=== PATIENT | male | born 1980 | race Hispanic/Latino ===

== ENCOUNTER 2018-12-29 15:34 | Observation (INO) | payer OTHER, SELFPAY ==
[~2018-12-29 15:34] MED LIST: Dexamethasone 20 MG/5 ML VIAL ONE; Ketorolac Tromethamine 30 MG/ML VIAL ONE; Lidocaine 1% PF 5 ML VIAL ONE; Metoclopramide HCl 10 MG/2 ML VIAL ONE; Ondansetron PF 4 MG/2 ML Vial ONE; PROPOFOL 200 MG/20 ML VIAL ONE
[2018-12-29 17:13] LABS: #Eosinphils 0.2 thou/uL (0.0-0.7); #Lymphocytes 2.1 thou/uL (1.20-3.40); #Monocytes 0.5 thou/uL (0.11-0.59); #Neutrophils 4.4 thou/uL (1.40-6.50); %Basophils 0.5 % (0.0-1.0); %Eosinophils 2.2 % (0.0-10.0); %Lymphocytes 29.3 % (21.0-51.0); %Monocytes 6.4 % (0.0-10.0); %Neutrophils 61.6 % (42.0-75.0); Hemoglobin 17.8 g/dL (14.0-18.0); Mean Corpuscular HGB CONC 34.8 g/dL (32.0-36.0); Mean Corpuscular Hemoglobin 33.4 pg (27.0-31.0); Mean Corpuscular Volume 95.8 fL (78.0-98.0); Mean Platelet Volume 7.1 fL (7.4-10.4); Platelet Count 209 thou/uL (130-400); RBC Distribution Width 11.7 % (11.5-14.5); Red Blood Cell (RBC) Count 5.33 mill/uL (4.70-6.10); White Blood Cell (WBC) Count 7.2 thou/uL (4.8-10.8)
[2018-12-29] MEDS ORDERED: Bupivacaine PF 0.5% 30 ML VIAL ONE (18:34)
[2018-12-29] MEDS ORDERED: Sodium Chloride 0.9% 10 ML ONE ×2 (18:34→18:48)
[2018-12-29] MEDS ORDERED: Bacitracin Zinc Ointment 30 gm TUBE ONE (18:34)
[2018-12-29] MEDS ORDERED: Famotidine/PF 20 mg/2ml Vial ONE (18:40)
[2018-12-29] MEDS ORDERED: Fentanyl 100 MCG/2 ML VIAL ONE (18:40)
[2018-12-29] MEDS ORDERED: Promethazine HCl 25 MG/ML VIAL SLOW IVP PRN (20:26)
[2018-12-29] MEDS ORDERED: Ondansetron HCl/PF 4 MG/2 ML Vial IVP PRN (20:26)
[2018-12-29] MEDS ORDERED: Promethazine HCl 25 MG/ML VIAL IM PRN ×2 (20:26→20:57)
[2018-12-29] MEDS ORDERED: Meperidine HCl/PF 25 MG/ML VIAL SLOW IVP PRN (20:26)
[2018-12-29] MEDS ORDERED: HYDROcodone/Acetaminophen 5/325 mg Tablet ONE (20:41)
[2018-12-29] MEDS ORDERED: traMADol HCl 50 MG TAB PO PRN (20:57)
[2018-12-29] MEDS ORDERED: Acetaminophen 325 MG TAB PO PRN (20:57)
[2018-12-29] MEDS ORDERED: Morphine 2 MG/ML SYRINGE SLOW IVP PRN (20:57)
[2018-12-29] MEDS ORDERED: Ondansetron PF 4 MG/2 ML Vial IV PRN (20:57)
[2018-12-29] MEDS ORDERED: Milk Of Magnesia 30 ML UDCUP PO PRN (20:57)
[2018-12-29] MEDS ORDERED: Bisacodyl 10 MG SUPP PR PRN (20:57)
[2018-12-29] MEDS ORDERED: HYDROcodone/Acetaminophen 5/325 mg Tablet PO PRN (20:57)
[2018-12-29] MEDS ORDERED: TETANUS AND DIPHTHERIA TOX/PF 0.5 ML DISP.SYRIN IM SCH (21:00)
[2018-12-29] MEDS ORDERED: Meperidine HCl/PF 25 MG/ML VIAL IM PRN (21:00)
[2018-12-29] MEDS ORDERED: Communication Order-Pharmacy FS PRN (21:00)
--- NOTE | 2018-12-29 21:51 | OP ---
DATE OF PROCEDURE: 12/29/2018 PREOPERATIVE DIAGNOSIS: Left thumb wound with tendon laceration. FINDINGS: Left thumb wound with 1. Intact flexor pollicis longus. 2. Intact ulnar and radial digital nerves. 3. Laceration, complete, of the abductor pollicis brevis, thenar muscle. 4. No joint involvement. 5. Flexor pollicis longus intact. 6. Minimal contamination, 5 cm wound. PROCEDURES PERFORMED: 1. Debridement of wound, 5 cm depth down to and including the tendon sheath, but not involving bone or joint. 2. Wound closure, 5 cm. 3. Abductor pollicis brevis laceration repair. 4. Neuroplasty of both digital nerves, radial and ulnar under loupe magnification. 5. 100% laceration of the tendon . Intact FPL and both digital nerves including radial digital nerve. ESTIMATED BLOOD LOSS: 10 mL. TOURNIQUET TIME: 25 minutes. SPECIMEN: None. DESCRIPTION OF PROCEDURE: After successful general endotracheal anesthesia, the patient had the limb prepped and draped. He then had painful resisted flexion, but had a flexion posture in the clinic for the FPL being intact and once prepped. The wound was primarily volar radial and extended to the midline at the level of the distal to the A1 bianca. We inflated the tourniquet after exsanguination of the limb, and injected the area with 10 mL of 0.5% Marcaine prior to surgery and 10 after the wound was closed. We extended the incision 2 cm proximal obliquely and then we dissected down and found both digital nerves to be intact with the large ulnar digital nerve and the radial digital nerve having no laceration and the two could be dissected free of any debris, which was minimal. Once we had done the neuroplasty, we then inspected the joint was intact, visualized flexor pollicis longus throughout the entire wound area in distal and proximally. The intact and then we found 100% laceration of the abductor pollicis brevis approximately 15 mm from its insertion on the radial mid lateral aspect of the metacarpophalangeal joint region/neck and head of the base of the proximal phalanx. We then debrided the wound edges, irrigated this with 3 L of normal saline with antibiotics inside and bulb syringe pressure. We repaired the laceration using multiple 4-0 [id number] Prolene sutures until there was no gap seen, no gap formation made even with ulnar deviation, but we kept him in neutral and 35 degrees of flexion. This relaxed the repair as well as the skin. We released the tourniquet, obtained hemostasis, closed the closed wound with interrupted 4-0 nylon in a simple interrupted pattern, gave the remaining injection, placed bacitracin, Adaptic, 4 x 4, Kerlix with a splint holding the web space abducted approximately 60 degrees to protect the repair. The patient then left the operating room without evidence of anesthetic or operative complication. Job ID: [id number]
[2018-12-29] MEDS: Aspirin 81 mg Enteric Coated Tablet PO SCH (23:18)
[2018-12-29] MEDS: Ketorolac Tromethamine 30 MG/ML VIAL IVP SCH (23:19)
[2018-12-29 23:24] VITALS: BMI 25.9
[2018-12-30] MEDS: Vancomycin HCl 1.5 GM in Sodium Chloride 0.9% 250 ML 300 ML IVPB SCH ×2 (00:01→12:44)
[2018-12-30] MEDS: Ketorolac Tromethamine 30 MG/ML VIAL IVP SCH ×3 (05:03→18:07)
[2018-12-30] MEDS: Aspirin 81 mg Enteric Coated Tablet PO SCH ×2 (08:47→20:06)
[2018-12-31] MEDS: Ketorolac Tromethamine 30 MG/ML VIAL IVP SCH (00:03)
[2018-12-31] MEDS: Vancomycin HCl 1.5 GM in Sodium Chloride 0.9% 250 ML 300 ML IVPB SCH (00:03)
[2018-12-31] MEDS: Aspirin 81 mg Enteric Coated Tablet PO SCH (09:19)
[2018-12-31 11:27] VITALS: BP 125/70; TEMP 98.2
[2018-12-31 11:50] LABS: Vancomycin, Trough 9.6 ug/mL
== END 2018-12-31 12:20 | disposition home or self-care (01) ==
LOC: SDC 15:34 → SURG B 22:54
PROVIDERS: ADMIT Orthopaedic Surgery Hand Surgery; ATTEND Orthopaedic Surgery Hand Surgery
PROC: 0KQD0ZZ Repair Left Hand Muscle, Open Approach (ICD-10-PCS; principal; 2018-12-29)
DX: S66.422A Laceration of intrinsic muscle, fascia and tendon of left thumb at wrist and hand level, initial encounter (principal); X58.XXXA Exposure to other specified factors, initial encounter
CPT/HCPCS: 36415; 80202; 85025; 96365; 96375; 96376; G0378; J0131; J0690; J1100; J1885; J2001; J2405; J2704; J2765; J3010; J3370; J3490; J7050; S0020; S0028